=== PATIENT | male | born 1930 | race Caucasian/White ===

== ENCOUNTER → 2017-01-03 | Outpatient (CLI) | payer MEDICARE ==
[~2017-01-03] MED LIST: ASCORBIC ACID500 MG PO; ASPIRIN EC81 MG PO; BRILINTA90 MG PO; CENTRUM SILVER1 EAC2 PO; COREG12.5 MG PO; COREG6.25 MG PO; DULCOLAX10 MG R; KLOR-CON20 MEQ PO; LIPITOR40 MG PO; NITROSTAT0.4 MG SL; NORVASC10 MG PO; NORVASC5 MG PO; OSCAL + D500 MG PO; STOOL SOFTENER100 MG PO; VASOTEC20 MG PO
== END ==
LOC: LNHI 12:34
DX: R53.83 Other fatigue (principal); I25.10 Atherosclerotic heart disease of native coronary artery without angina pectoris

== ENCOUNTER → 2017-02-14 | Outpatient (CLI) | payer MEDICARE | LOC: LGSMG 10:20 | DX: R80.9 Proteinuria, unspecified (principal) ==